=== PATIENT | female | born 1930 | race Caucasian/White ===

== ENCOUNTER → 2016-05-10 | Outpatient (CLI) | payer MEDICARE, OTHER ==
[~2016-05-10] MED LIST: ALBU6.7H INH; IPRAAER IN; LISI-363 PO; LORTA5 PO; METO100T PO; MONT10 PO
[2016-05-10 10:21] LABS: CHLORIDE 104 MEQ/L (98-107); POTASSIUM 4.1 MEQ/L (3.5-5.1); SODIUM (NA) 142 MEQ/L (136-145)
[2016-05-10 10:25] LABS: ANION GAP 7 MEQ/L (5-15); BICARBONATE 31.5 MEQ/L (21.0-32.0); GLUCOSE,FASTING 122 MG/DL (74-99)
[2016-05-10 10:26] LABS: BLOOD UREA NITROGEN 15 MG/DL (7-18)
[2016-05-10 10:28] LABS: ALT (GPT) 51 U/L (10-53)
[2016-05-10 10:29] LABS: AST (GOT) 40 U/L (15-37); GLOMERULAR FILTRATION RATE 71 ML/MIN (>89)
[2016-05-10 10:31] LABS: ALKALINE PHOSPHATASE 92 U/L (45-117)
[2016-05-10 10:32] LABS: TOTAL BILIRUBIN ADULT 0.9 MG/DL (0.2-1.0)
== END ==
LOC: PLAB 08:20
PROVIDERS: ATTEND Family Medicine
DX: R74.0 Nonspecific elevation of levels of transaminase and lactic acid dehydrogenase [LDH] (principal); I10 Essential (primary) hypertension
CPT/HCPCS: 36415; 80053

== ENCOUNTER → 2016-10-18 | Outpatient (CLI) | payer MEDICARE, OTHER ==
[2016-10-18 13:53] LABS: ANION GAP 8 MEQ/L (5-15); AST (GOT) 44 U/L (15-37); BICARBONATE 29.2 MEQ/L (21.0-32.0); BLOOD UREA NITROGEN 18 MG/DL (7-18); CHLORIDE 105 MEQ/L (98-107); GLOMERULAR FILTRATION RATE 67 ML/MIN (>89); POTASSIUM 4.7 MEQ/L (3.5-5.1); SODIUM (NA) 142 MEQ/L (136-145)
[2016-10-18 13:56] LABS: ALKALINE PHOSPHATASE 98 U/L (45-117); ALT (GPT) 61 U/L (10-53); TOTAL BILIRUBIN ADULT 0.9 MG/DL (0.2-1.0)
== END ==
LOC: PLAB 09:51
PROVIDERS: ATTEND Family Medicine
DX: R74.0 Nonspecific elevation of levels of transaminase and lactic acid dehydrogenase [LDH] (principal); I10 Essential (primary) hypertension
CPT/HCPCS: 36415; 80053

== ENCOUNTER → 2017-03-28 | Outpatient (CLI) | payer MEDICARE, OTHER ==
[2017-03-28 13:26] LABS: ALBUMIN 3.8 GM/DL (3.4-5.0); AST (GOT) 54 U/L (15-37); BICARBONATE 30.6 MEQ/L (21.0-32.0); BLOOD UREA NITROGEN 19 MG/DL (7-18); CALCIUM 8.7 MG/DL (8.5-10.1); CHLORIDE 106 MEQ/L (98-107); CREATININE 0.73 MG/DL (0.50-1.00); GLOMERULAR FILTRATION RATE 76 ML/MIN (>89); GLUCOSE,FASTING 112 MG/DL (74-99); SODIUM (NA) 142 MEQ/L (136-145)
[2017-03-28 13:32] LABS: ALKALINE PHOSPHATASE 97 U/L (45-117); ALT (GPT) 70 U/L (10-53); TOTAL BILIRUBIN ADULT 1.1 MG/DL (0.2-1.0); TOTAL PROTEIN 7.3 GM/DL (6.4-8.2)
== END ==
LOC: PLAB 10:16
PROVIDERS: ATTEND Family Medicine
DX: I10 Essential (primary) hypertension (principal); R74.0 Nonspecific elevation of levels of transaminase and lactic acid dehydrogenase [LDH]
CPT/HCPCS: 36415; 80053

== ENCOUNTER 2017-06-18 11:14 | Emergency (ER) | payer MEDICARE, OTHER ==
--- NOTE | 2017-06-18 11:54 | PD ---
HPI Chief Complaint: Code Blue Time Seen by Provider: 11:27 Travel History International Travel<30 days: No Contact w/Intl Traveler<30days: No Traveled to known affect area: No History of Present Illness HPI 86-year-old female came to the emergency room brought in by EMS emergently as a cardiac arrest. Patient was getting CPR en route. She was intubated by the paramedics at the scene. Patient is in no condition obviously to give any meaningful history. History was obtained from the gas meter installer. Patient was having some shortness of breath and was being brought to the emergency room by a friend who was driving her. The truck driver noticed that patient started to have inguinal respirations and stopped the car and pulled over and called 911. When fire department came at the first responders and brought her out of the car she had some febrile pulses. CPR was started. This time was at 10:50 AM. When paramedics arrived patient was pulseless. She was intubated by them and CPR was continued. She was given multiple rounds of epinephrine and medications as per their ACLS protocol. Patient upon arrival in the emergency room continue to be pulseless. She was confirmed to be in good position by me. CPR was continued in the emergency room. Blood sugar was 114 as per the paramedics. Patient has some past medical history of COPD. [facility] Past Medical History Narrative Medical List of her past medical, surgical, social and family history is reviewed from the nursing note. Medical History: Unable to Obtain Asthma: Yes COPD: Yes Hypertension: Yes Tetanus Vaccination: Unknown ?: Not Past Surgical History Surgical History: Unable to Obtain Hysterectomy: Yes Social History Alcohol Use: Yes (DAILY) Tobacco Use: No Substance Use: No Allergies-Medications (Allergen,Severity, Reaction): Coded Allergies: codeine (Unverified Allergy, Intermediate, NAUSEAAND VOMITING, 10/17/16) meperidine (Unverified Allergy, Intermediate, NAUSEA AND VOMITING, 10/17/16 ) Comments List of her allergies reviewed from the nursing note. Reported Meds & Prescriptions Reported Meds & Active Scripts Active [place] 5/325 (Hydrocodone-Acetaminophen) 325 Mg/5 Mg Tab 1 Tab PO Q6H PRN Proventil Hfa (Albuterol Sulfate) 6.7 Gm Aero 2 Puff INH Q4 PRN * SHAKE WELL BEFORE USE * DISPENSE AND ADMINISTER WITH SPACER DEVICE Reported Combivent Respimat (Albuterol/Ipratropium) Respimat Aer 1 Inhalation IN Lisinopril 20 Mg Tab 20 Mg PO DAILY Metoprolol Tartrate 100 Mg Tab 100 Mg PO ONCE Montelukast Sodium 10 Mg Tab 10 Mg PO HS Narrative Medication List of her home medications reviewed from the nursing note Review of Systems ROS Limitations: Intubated Except as stated in HPI: all other systems reviewed are Neg Physical Exam Narrative GENERAL: Unresponsive, intubated, CPR SKIN: Cold and mottled HEAD: Atraumatic. Normocephalic. EYES: Pupils equal and round left eye cataract, right eye 3 mm fixed and dilated. No scleral icterus. No injection or drainage. ENT: No nasal bleeding or discharge. Mucous membranes pink and moist. NECK: Trachea midline. No JVD. ET tube CARDIOVASCULAR: No pulse RESPIRATORY: No spontaneous respirations GASTROINTESTINAL: Abdomen soft, non-tender, nondistended. Hepatic and splenic margins not palpable. MUSCULOSKELETAL: No obvious deformities. No clubbing. No cyanosis. No edema. NEUROLOGICAL: GCS of 3 PSYCHIATRIC: Unable to assess MDM Medical Decision Making Medical Screen Exam Complete: Yes Emergency Medical Condition: Yes Medical Record Reviewed: Yes Differential Diagnosis Cardiac arrest Narrative Course 11:51 AM CPR was run by me for about 12 minutes after arrival. Multiple rounds of medications were given. Please refer to my nurse's code sheet regarding the dose on the time of the medication given. I had done a bedside ultrasound to look for cardiac activity. Please refer to my procedure note. No cardiac activity was noticed. Due to the medical futility of the condition CPR was ceased. Patient was pronounced by me. Time of was 11:26 AM. 10:57 AM I just discussed the case with her primary care Dr. Lackey who would sign the certificate. She knew the patient well. She will contact patient's son and talk to him about the of his mother. Procedures Procedure Narrative Emergency department cardiac ultrasound was performed Small curvilinear probe was used in the epigastric, parasternal long/short access, four-chamber apical revealing no evidence of pericardial effusion. There was no cardiac activity noticed. EKG Prior to Arrival: No Diagnosis Primary Impression: Cardiorespiratory arrest Disposition: 20 Condition: Troy Bowman MD Jun 18, 2017 11:54
== END 2017-06-18 12:50 | disposition expired ==
LOC: NEPE 11:14 → NEPI 12:50
DX: I46.9 Cardiac arrest, cause unspecified (principal); J44.9 Chronic obstructive pulmonary disease, unspecified; I10 Essential (primary) hypertension
CPT/HCPCS: 92950